=== PATIENT | male | born 2000 | race Caucasian/White ===

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

== ENCOUNTER → 2022-07-15 | Outpatient (CLI) | payer OTHER | LOC: M RAD 15:35 | PROVIDERS: ATTEND Physical Medicine & Rehabilitation Neuromuscular Medicine | DX: M54.2 Cervicalgia (principal); R51.9 Headache, unspecified ==